=== PATIENT | male | born 1965 ===

== ENCOUNTER 2017-11-06 08:27 | Day surgery (SDC) | payer OTHER ==
[2017-10-29 10:38] VITALS: BMI 27.3
[2017-11-06 08:50] VITALS: O2SAT 100
[2017-11-06] MEDS ORDERED: Propofol 10 mg/ml Inj (20 ML) ONE (10:32)
[2017-11-06] MEDS ORDERED: Sodium Chloride 0.9% 1,000 ML IV SCH (11:30)
[2017-11-06 11:32] VITALS: RESP 16
[2017-11-06 12:16] VITALS: BP 120/67; PULSE 61; TEMP 97.6
== END 2017-11-06 13:11 | disposition home or self-care (01) ==
LOC: ENDO 08:27
PROVIDERS: ATTEND Internal Medicine Gastroenterology
DX: D12.2 Benign neoplasm of ascending colon (principal); K57.30 Diverticulosis of large intestine without perforation or abscess without bleeding; K64.8 Other hemorrhoids; K57.10 Diverticulosis of small intestine without perforation or abscess without bleeding; I10 Essential (primary) hypertension; H40.9 Unspecified glaucoma; Z96.642 Presence of left artificial hip joint; Z90.49 Acquired absence of other specified parts of digestive tract; M15.0 Primary generalized (osteo)arthritis; K52.9 Noninfective gastroenteritis and colitis, unspecified
CPT/HCPCS: 45385; 88305; J2704; J7040 ×2